=== PATIENT | male | born 1995 ===

== ENCOUNTER 2023-03-10 02:16 | Emergency (ER) | payer SELFPAY ==
[2023-03-10 02:35] VITALS: TEMP 98.2
[2023-03-10] MEDS ORDERED: LIDOCAINE 1%-EPI 1:100,000 50 ML VIAL SQ STA (03:18)
[2023-03-10] MEDS ORDERED: ONDANSETRON ODT 4 MG TAB PO STA (03:19)
[2023-03-10] MEDS ORDERED: ACETAMINOPHEN TAB 325 MG TAB PO STA (03:19)
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
[2023-03-10 06:57] VITALS: BP 103/47; PULSE 52; RESP 16
== END 2023-03-10 07:02 | disposition home or self-care (01) ==
LOC: EC 02:16
DX: S01.01XA Laceration without foreign body of scalp, initial encounter (principal); S01.511A Laceration without foreign body of lip, initial encounter; S01.21XA Laceration without foreign body of nose, initial encounter; Y00.XXXA Assault by blunt object, initial encounter
CPT/HCPCS: 12002; 12013; 70450; 70486; 72125; 99284